=== PATIENT | male | born 1965 | race Caucasian/White ===

== ENCOUNTER → 2019-04-25 | Outpatient (REF) | payer OTHER ==
[2019-04-25 11:10] LABS: BASO # 0.1 10^3/uL (0.0-0.2); BASO % 0.9 % (0.0-1.0); EOS # 0.2 10^3/uL (0.0-0.50); EOS % 3.2 % (0.0-3.0); HEMATOCRIT 46.3 % (42.0-52.0); HEMOGLOBIN 15.7 g/dl (13.5-17.5); LYMPH # 1.2 10^3/uL (1.5-4.5); LYMPH % 17.1 % (24.0-44.0); MEAN CORPUSCULAR HEMOGLOBIN 31.6 pg (27.0-33.0); MEAN CORPUSCULAR HGB CONC 33.9 g/dl (32.0-36.5); MEAN CORPUSCULAR VOLUME 93.2 fl (80.0-96.0); MONO # 0.4 10^3/uL (0.0-0.8); MONO % 6.3 % (0.0-5.0); NEUTROPHILS % 71.9 % (36.0-66.0); PLATELET COUNT, AUTOMATED 319 10^3/uL (150-450); RED BLOOD COUNT 4.97 10^6/uL (4.30-6.10)
[2019-04-25 11:39] LABS: ALBUMIN 3.6 GM/DL (3.2-5.2); ALT/SGPT 32 U/L (12-78); BILIRUBIN,TOTAL 0.3 MG/DL (0.2-1.0); BLOOD UREA NITROGEN 13 MG/DL (7-18); CALCIUM LEVEL 8.9 MG/DL (8.5-10.1); CARBON DIOXIDE LEVEL 26 MEQ/L (21-32); CHLORIDE LEVEL 107 MEQ/L (98-107); CREATININE FOR GFR 0.88 MG/DL (0.70-1.30); GLOMERULAR FILTRATION RATE > 60.0 (>56); GLUCOSE, FASTING 124 MG/DL (70-100); POTASSIUM SERUM 4.2 MEQ/L (3.5-5.1); SODIUM LEVEL 140 MEQ/L (136-145); TOTAL PROTEIN 6.8 GM/DL (6.4-8.2)
== END ==
LOC: M LABDRAW1 09:20
PROVIDERS: ATTEND Orthopaedic Surgery
DX: M25.552 Pain in left hip (principal)

== ENCOUNTER → 2020-08-19 | Outpatient (CLI) | payer OTHER ==
[2020-08-19 11:35] LABS: PLATELET COUNT, AUTOMATED 331 10^3/uL (150-450)
[2020-08-19 11:46] LABS: INR 0.92; PROTHROMBIN TIME 12.6 SECONDS (12.5-14.3)
[2020-08-19 11:47] LABS: PARTIAL THROMBOPLASTIN TIME 27.6 SECONDS (24.2-38.5)
[2020-08-19 12:02] LABS: COLLAGEN EPINEPHRINE 107 SECONDS (74-162)
== END ==
LOC: M LAB 11:13
PROVIDERS: ATTEND Physical Medicine & Rehabilitation
DX: M54.16 Radiculopathy, lumbar region (principal)

== ENCOUNTER → 2020-08-19 | Outpatient (CLI) | payer OTHER | LOC: M LABSMTC 10:31 | PROVIDERS: ATTEND Physical Medicine & Rehabilitation | DX: Z20.828 Contact with and (suspected) exposure to other viral communicable diseases (principal) ==

== ENCOUNTER → 2021-01-27 | Outpatient (CLI) | payer OTHER ==
--- NOTE | 2021-01-27 10:23 | REP ---
INDICATION: PAIN IN LEFT KNEE, LAB 1ST EKG 2ND THEN XR COMPARISON: None. TECHNIQUE: AP and cross-table lateral views. FINDINGS: Very subtle heterogeneous changes involving the distal femur and proximal tibia without joint space narrowing or osteophytosis. Relatively normal appearance to the patella. No obvious acute or healed fracture. No effusion. IMPRESSION: Subtle heterogeneous changes are nonspecific and require clinical correlation. Differential diagnosis includes but is not limited to complex regional pain syndrome. <Electronically signed by Stuart Raman > 01/27/21 1019
== END ==
LOC: M RAD 09:27
PROVIDERS: ATTEND Nurse Practitioner Family
DX: M25.562 Pain in left knee (principal); G89.29 Other chronic pain

== ENCOUNTER → 2021-01-27 | Outpatient (CLI) | payer OTHER ==
--- NOTE | 2021-01-27 10:09 | ECGEPIP ---
[facility] Test Date: 2021-01-27 Pat Name: ALEYDA COMBS Department: Room: - Gender: Male Protocol Manager: KARIE : 1965 Requested By: Reji Lubin Order Number: [id number] Reading MD: Kelle Fraser Measurements Intervals [place] Rate: 63 P: 61 AK: 164 QRS: 25 QRSD: 84 T: 16 QT: 392 QTc: 401 Interpretive Statements Normal sinus rhythm LOW [place] LEADS NO PRIOR Electronically Signed on 01-27-2021 10:08:45 EST by Kelle Fraser
--- NOTE | 2021-01-27 10:19 | REP ---
INDICATION: HTN,COPD, LAB 1ST EKG 2ND THEN XR COMPARISON: 04/11/2006 TECHNIQUE: PA and lateral. FINDINGS: The mediastinum and cardiac silhouette are normal. The lung coates are clear and without acute consolidation, effusion, or pneumothorax. The skeletal structures are intact and normal. IMPRESSION: No acute cardiopulmonary process. <Electronically signed by Stuart Raman > 01/27/21 1019
[2021-01-27 10:28] LABS: APPEARANCE, URINE CLEAR (CLEAR); BACTERIA, URINE AUTO NEGATIVE (NEGATIVE); BILIRUBIN, URINE AUTO NEGATIVE (NEGATIVE); BLOOD, URINE BLOOD NEGATIVE (NEGATIVE); COLOR, URINE STRAW (YELLOW); GLUCOSE, URINE (UA) AUTO NEGATIVE (NEGATIVE); KETONE, URINE AUTO NEGATIVE (NEGATIVE); LEUKOCYTE ESTERASE, URINE AUTO NEGATIVE (NEGATIVE); NITRITE, URINE AUTO NEGATIVE (NEGATIVE); PROTEIN, URINE AUTO NEGATIVE (NEGATIVE); RBC, URINE AUTO 0 /HPF (0-3); SPECIFIC GRAVITY URINE AUTO 1.009 (1.002-1.035); SQUAMOUS EPITHELIAL CELL UR AU 0 /HPF (0-6); UROBILINOGEN, URINE AUTO 0.2 mg/dL (0.0-2.0); WBC, URINE AUTO 0 /HPF (0-3)
[2021-01-27 10:29] LABS: HEMATOCRIT 49.5 % (42.0-52.0); HEMOGLOBIN 16.6 g/dl (13.5-17.5); MEAN CORPUSCULAR HEMOGLOBIN 30.9 pg (27.0-33.0); MEAN CORPUSCULAR HGB CONC 33.5 g/dl (32.0-36.5); MEAN CORPUSCULAR VOLUME 92.2 fl (80.0-96.0); PLATELET COUNT, AUTOMATED 379 10^3/uL (150-450); RED BLOOD COUNT 5.37 10^6/uL (4.30-6.10)
[2021-01-27 10:40] LABS: INR 0.89; PROTHROMBIN TIME 12.2 SECONDS (12.5-14.3)
[2021-01-27 10:41] LABS: PARTIAL THROMBOPLASTIN TIME 29.7 SECONDS (24.2-38.5)
[2021-01-27 13:16] LABS: ALBUMIN 3.6 GM/DL (3.2-5.2); ALT/SGPT 26 U/L (12-78); BILIRUBIN,TOTAL 0.2 MG/DL (0.2-1.0); BLOOD UREA NITROGEN 16 MG/DL (7-18); CALCIUM LEVEL 9.2 MG/DL (8.5-10.1); CARBON DIOXIDE LEVEL 28 MEQ/L (21-32); CHLORIDE LEVEL 108 MEQ/L (98-107); CHOLESTEROL LEVEL 238 MG/DL (<200); CHOLESTEROL RISK RATIO 5.288 (<5); CREATININE FOR GFR 0.77 MG/DL (0.70-1.30); GLOMERULAR FILTRATION RATE > 60.0 (>56); GLUCOSE, FASTING 111 MG/DL (70-100); HDL CHOLESTEROL 45 MG/DL (>40); LDL CHOLESTEROL 131 MG/DL (<100); NON-HDL-C 193 MG/DL; POTASSIUM SERUM 5.4 MEQ/L (3.5-5.1); PROSTATIC SPECIFIC AG MONITOR 1.75 NG/ML (< 4.00); SODIUM LEVEL 140 MEQ/L (136-145); TESTOSTERONE 498 NG/DL (241-827); THYROID STIMULATING HORMONE 0.805 uIU/ML (0.358-3.740); TOTAL PROTEIN 7.2 GM/DL (6.4-8.2); TRIGLYCERIDES LEVEL 310 MG/DL (<150)
== END ==
LOC: M LAB 09:22
PROVIDERS: ATTEND Family Medicine
DX: J44.9 Chronic obstructive pulmonary disease, unspecified (principal); I10 Essential (primary) hypertension; R53.83 Other fatigue

== ENCOUNTER → 2021-03-10 | Outpatient (CLI) | payer OTHER ==
[2021-03-10 13:09] LABS: POTASSIUM SERUM 4.5 MEQ/L (3.5-5.1)
== END ==
LOC: M LAB 12:28
PROVIDERS: ATTEND Family Medicine
DX: Z01.818 Encounter for other preprocedural examination (principal)

== ENCOUNTER 2022-07-15 03:07 | Emergency (ER) | payer BC, OTHER ==
[~2022-07-15] VITALS: Ht 175.3 cm; Wt 85.8 kg
[2022-07-15] MEDS ORDERED: KETOROLAC 30 MG/ML 1ML VIAL IV ONE (06:35)
[2022-07-15] MEDS ORDERED: ONDANSETRON 4MG 2ML VIAL IV ONE (06:35)
[2022-07-15] MEDS ORDERED: NS 1,000 ML IV ONE (06:35)
[2022-07-15 07:35] VITALS: BP 148/79
[2022-07-15 07:46] LABS: BASO % 0.1 % (0.0-1.0); EOS # 0.1 10^3/uL (0.0-0.5); HEMATOCRIT 44.7 % (42.0-52.0); HEMOGLOBIN 15.4 g/dl (13.5-17.5); LYMPH % 7.9 % (24.0-44.0); MEAN CORPUSCULAR HEMOGLOBIN 31.2 pg (27.0-33.0); MEAN CORPUSCULAR HGB CONC 34.5 g/dl (32.0-36.5); MEAN CORPUSCULAR VOLUME 90.7 fl (80.0-96.0); MONO # 0.3 10^3/uL (0.0-0.8); MONO % 2.6 % (2.0-8.0); NEUTROPHILS # 10.8 10^3/uL (1.5-8.5); PLATELET COUNT, AUTOMATED 336 10^3/uL (150-450); RED BLOOD COUNT 4.93 10^6/uL (4.30-6.10); WHITE BLOOD COUNT 12.3 10^3/uL (4.0-10.0)
[2022-07-15] MEDS ORDERED: LIDOCAINE W/EPINEPHRINE 1% 20ML VIAL SC ONE (08:05)
[2022-07-15 08:15] LABS: BLOOD UREA NITROGEN 8 MG/DL (7-18); CARBON DIOXIDE LEVEL 24 MEQ/L (21-32); CHLORIDE LEVEL 106 MEQ/L (98-107); CREATININE FOR GFR 0.69 MG/DL (0.70-1.30); GLOMERULAR FILTRATION RATE > 60.0 (>56); GLUCOSE, FASTING 113 MG/DL (70-100); POTASSIUM SERUM 4.3 MEQ/L (3.5-5.1); SODIUM LEVEL 137 MEQ/L (136-145)
[2022-07-15] MEDS ORDERED: IBUP-1022 PO (09:03)
[2022-07-15] MEDS ORDERED: ONDA4TAB6 PO (09:03)
== END 2022-07-15 09:36 | disposition home or self-care (01) ==
LOC: M ED 03:07
DX: S01.01XA Laceration without foreign body of scalp, initial encounter (principal); S01.81XA Laceration without foreign body of other part of head, initial encounter; Y00.XXXA Assault by blunt object, initial encounter; Y07.499 Other family member, perpetrator of maltreatment and neglect; Y92.009 Unspecified place in unspecified non-institutional (private) residence as the place of occurrence of the external cause; M48.02 Spinal stenosis, cervical region; G89.29 Other chronic pain; M54.9 Dorsalgia, unspecified; K02.9 Dental caries, unspecified; J01.00 Acute maxillary sinusitis, unspecified; I65.23 Occlusion and stenosis of bilateral carotid arteries; F17.200 Nicotine dependence, unspecified, uncomplicated
CPT/HCPCS: 12002; 12011; 70450; 70486; 72125; 80048; 85025; 96361; 96374; 96375; 99284; J1885; J2405

== ENCOUNTER → 2022-10-25 | Outpatient (CLI) | payer OTHER ==
[~2022-10-25] MED LIST: IBUP-1022 PO; ONDA4TAB6 PO
== END ==
LOC: M RAD 08:47
PROVIDERS: ATTEND Orthopaedic Surgery
DX: M51.36 Other intervertebral disc degeneration, lumbar region (principal)

== ENCOUNTER 2023-03-18 21:01 | Emergency (ER) | payer MEDICAID, OTHER ==
[~2023-03-18] VITALS: Ht 175.3 cm; Wt 81.4 kg
[2023-03-18 21:02] VITALS: BP 138/81
[2023-03-18] MEDS ORDERED: FLUORESCEIN OPHTH 1MG STRIP OS ONE (21:25)
[2023-03-18] MEDS ORDERED: TETRACAINE 0.5% OPHTH SOLN 4ML OS ONE (21:25)
[2023-03-18] MEDS ORDERED: POLYSOL OP (22:29)
== END 2023-03-18 22:46 | disposition home or self-care (01) ==
LOC: M ED 21:01
DX: T15.01XA Foreign body in cornea, right eye, initial encounter (principal); Y92.009 Unspecified place in unspecified non-institutional (private) residence as the place of occurrence of the external cause

== ENCOUNTER 2025-07-18 12:44 | Emergency (ER) | payer OTHER ==
[~2025-07-18] VITALS: Ht 175.3 cm; Wt 83.4 kg
[~2025-07-18 12:44] MED LIST changes: -IBUP-1022 PO; +IBUP600T42 PO; +ONDA-282 PO; -ONDA4TAB6 PO; +POLYSOL OP
[2025-07-18 12:47] VITALS: BP 166/94; O2SAT 96
[2025-07-18 12:51] VITALS: TEMP 98.4
[2025-07-18 14:17] LABS: BASO # 0.1 10^3/uL (0.0-0.2); BASO % 0.6 % (0.0-1.0); EOS # 0.4 10^3/uL (0.0-0.5); EOS % 4.5 % (0.0-3.0); LYMPH # 1.9 10^3/uL (1.5-5.0); LYMPH % 22.7 % (24.0-44.0); MONO # 0.5 10^3/uL (0.0-0.8); MONO % 6.0 % (2.0-8.0); NEUTROPHILS # 5.4 10^3/uL (1.5-8.5); NEUTROPHILS % 66.0 % (36.0-66.0); PLATELET COUNT, AUTOMATED 338 10^3/uL (150-450)
[2025-07-18 14:38] LABS: ALT/SGPT 41 U/L (7.0-40); AST/SGOT 28 U/L (<34); CALCIUM LEVEL 9.9 MG/DL (8.5-10.1); CARBON DIOXIDE LEVEL 22 MMOL/L (20-31); CHLORIDE LEVEL 107 MMOL/L (98-107); CREATININE FOR GFR 0.92 MG/DL (0.70-1.30); GLOMERULAR FILTRATION RATE > 90.0 (>56); POTASSIUM SERUM 4.2 MMOL/L (3.5-5.1); SODIUM LEVEL 138 MMOL/L (136-145)
[2025-07-18] MEDS: ONDANSETRON 4MG 2ML VIAL IV ONE (15:03)
[2025-07-18] MEDS: KETOROLAC 30 MG/ML 1 ML VIAL IV ONE (15:04)
[2025-07-18] MEDS ORDERED: ISOVUE-370 76% 100 ML VIAL As Ordered ONE (16:28)
== END 2025-07-18 20:07 | disposition left against medical advice (07) ==
LOC: M ED 12:44
DX: R11.10 Vomiting, unspecified (principal); F17.210 Nicotine dependence, cigarettes, uncomplicated; Z53.9 Procedure and treatment not carried out, unspecified reason
CPT/HCPCS: 74177; 80048; 80076; 83605; 83690; 85025; 96374; 96375; 99283; J1885; J2405; Q9967